=== PATIENT | female | born 1955 | race Caucasian/White ===

== ENCOUNTER 2022-01-23 11:11 | Emergency (ER) | payer MEDICARE, OTHER ==
[2022-01-23] MEDS ORDERED: HYDROmorphone 1 MG/ML Syringe IVPUSH ONE (11:21)
[2022-01-23] MEDS ORDERED: HYDROmorphone 0.5 MG/0.5 ML Syringe IVPUSH ONE ×3 (13:25→16:32)
[2022-01-23] MEDS ORDERED: Dextrose 5%-0.9% NaCl 1,000 ML IV SCH (17:15)
== END 2022-01-23 17:39 ==
LOC: JP.ED 11:11
DX: S72.001A Fracture of unspecified part of neck of right femur, initial encounter for closed fracture (principal); S52.515A Nondisplaced fracture of left radial styloid process, initial encounter for closed fracture; S62.002A Unspecified fracture of navicular [scaphoid] bone of left wrist, initial encounter for closed fracture; S16.1XXA Strain of muscle, fascia and tendon at neck level, initial encounter; S40.012A Contusion of left shoulder, initial encounter; S90.01XA Contusion of right ankle, initial encounter; S00.03XA Contusion of scalp, initial encounter; S80.12XA Contusion of left lower leg, initial encounter; E11.9 Type 2 diabetes mellitus without complications; Z91.048 Other nonmedicinal substance allergy status; Z88.5 Allergy status to narcotic agent; Z88.6 Allergy status to analgesic agent; Z88.8 Allergy status to other drugs, medicaments and biological substances; Z79.899 Other long term (current) drug therapy; Z79.82 Long term (current) use of aspirin; Z79.4 Long term (current) use of insulin; W10.9XXA Fall (on) (from) unspecified stairs and steps, initial encounter
CPT/HCPCS: 29125; 36415; 51702; 70450; 71045; 72125; 72192; 73030; 73110; 73590; 80048; 82947; 85025; 96374; 96376; 99284; J1170